=== PATIENT | male | born 1945 | race Caucasian/White ===

== ENCOUNTER 2018-04-15 00:06 | Inpatient (IN) | payer MEDICARE ==
[2018-04-15 00:51] LABS: #Eosinphils 0.4 thou/uL (0.0-0.7); #Lymphocytes 1.5 thou/uL (1.20-3.40); #Monocytes 0.7 thou/uL (0.11-0.59); #Neutrophils 6.8 thou/uL (1.40-6.50); %Basophils 0.3 % (0.0-1.0); %Eosinophils 3.8 % (0.0-10.0); %Monocytes 7.7 % (0.0-10.0); %Neutrophils 72.2 % (42.0-75.0); Hemoglobin 9.1 g/dL (14.0-18.0); Mean Corpuscular HGB CONC 32.2 g/dL (32.0-36.0); Mean Platelet Volume 7.8 fL (7.4-10.4); Platelet Count 314 thou/uL (130-400); RBC Distribution Width 12.3 % (11.5-14.5); Red Blood Cell (RBC) Count 3.04 mill/uL (4.70-6.10); White Blood Cell (WBC) Count 9.4 thou/uL (4.8-10.8)
[2018-04-15 01:12] LABS: ALT (SGPT) 10 U/L (8-55); AST (SGOT) 9 U/L (5-34); Albumin 3.9 g/dL (3.4-4.8); Alkaline Phosphatase 90 U/L (40-150); Anion Gap 15 mmol/L (10-20); BUN (Urea Nitrogen) 40 mg/dL (8.4-25.7); Bilirubin, Total 0.3 mg/dL (0.2-1.2); Calc. Creatinine Clearance 0 mL/min (70-130); Calcium 9.9 mg/dL (7.8-10.44); Carbon Dioxide 25 mmol/L (23-31); Chloride 102 mmol/L (98-107); Estimated GFR-MDRD 39; Globulin 3.4 g/dL (2.4-3.5); Glucose 103 mg/dL (83-110); Lipase 23 U/L (8-78); Potassium 4.3 mmol/L (3.5-5.1); Protein, Total 7.3 g/dL (5.8-8.1); Sodium 138 mmol/L (136-145)
[2018-04-15 01:25] LABS: Bilirubin Negative (Negative); Blood, Urine Small (Negative); Clarity TURBID (Clear); Glucose, Urine (Dipstick) Negative (Negative); Leukocyte Large (Negative); Nitrite Positive (Negative); Protein, Urine (Dipstick) 30 mg/dL (Neg-Trace); Specific Gravity, Urine 1.013 (1.002-1.036); Urobilinogen 0.2 mg/dL (0.2-1.0); pH, Urine 8.5 (5.0-9.0)
[2018-04-15 01:27] LABS: Bacteria/HPF 4+ HPF (None Seen); Pathc Cast-AUWi Flag 2.31 (0-2.49); Squamous Epithelial 0-3 HPF (0-3)
[2018-04-15 01:31] LABS: Hyaline Casts/LPF 7-10 HYALINE CAST LPF (0-3 Hyaline)
[2018-04-15 01:32] LABS: Crystals/HPF 2+ TRIPLE PHOS HPF (Negative); Renal Epithelial None Seen HPF (0-3); Transitional Epithelial NONE SEEN HPF (0-3)
[2018-04-15] MEDS ORDERED: Acetaminophen 325 MG TAB PO PRN (06:14)
[2018-04-15] MEDS ORDERED: Ondansetron PF 4 MG/2 ML Vial IVP PRN ×2 (06:14→11:57)
[2018-04-15] MEDS ORDERED: Ondansetron ODT 4 MG TAB SL PRN (06:14)
[2018-04-15] MEDS: Sodium Chloride 0.9% 1,000 ML IV SCH ×3 (07:10→17:02)
[2018-04-15 07:32] VITALS: BMI 20.5
[2018-04-15] MEDS ORDERED: Senokot S 8.6-50 MG TAB PO PRN (09:32)
[2018-04-15] MEDS: cefTRIAXone\\ROCEPHIN 1 GM in Sodium Chloride 0.9% 100 ML IVPB SCH (11:21)
[2018-04-15] MEDS ORDERED: Dextrose 5% in Water 1,000 ML IV PRN (11:54)
[2018-04-15] MEDS ORDERED: Dextrose 50% Abboject 50 ML SYRINGE SLOW IVP PRN (11:54)
[2018-04-15 12:43] LABS: Anion Gap 14 mmol/L (10-20); BUN (Urea Nitrogen) 34 mg/dL (8.4-25.7); Calc. Creatinine Clearance 51 mL/min (70-130); Calcium 8.6 mg/dL (7.8-10.44); Carbon Dioxide 23 mmol/L (23-31); Chloride 107 mmol/L (98-107); Estimated GFR-MDRD 55; Glucose 73 mg/dL (83-110); Potassium 3.5 mmol/L (3.5-5.1); Sodium 140 mmol/L (136-145)
--- NOTE | 2018-04-15 14:26 | RAD ---
PORTABLE CHEST: History: Fever. Comparison: 10-03-17 FINDINGS: Heart size appears slightly enlarged. There are post op sternotomy changes. The lungs are clear of an y infiltrates. IMPRESSION: Borderline to minimal cardiomegaly. No acute findings. POS: [facility]
--- NOTE | 2018-04-15 22:02 | HP ---
DATE OF ADMISSION: 04/15/2018 CHIEF COMPLAINT: Nausea, vomiting, and diarrhea. HOSPITAL COURSE: The patient is a very pleasant 73-year-old male with a history of coronary artery d isease, status post bypass; diabetes; hypertension; hyperlipidemia; recent bacteremia; and also endoc arditis who presented to the hospital with 1 day's worth of nausea, vomiting, and diarrhea. The valentine ent really cannot provide a great history. Most of the history is gotten from the charts; however, i t seems that the patient has had nausea, vomiting, and diarrhea for about a day and therefore was adm itted to the hospital for further evaluation. PAST MEDICAL HISTORY: He has coronary artery disease, diabetes, hypertension, hyperlipidemia, bacter emia, endocarditis. PAST SURGICAL HISTORY: Bypass in 2011 in [place], history of bilateral cataract surgery. SOCIAL HISTORY: The patient lives in a fpc in [facility]. He is a nonsmoker, quit in 1989; and also history of alcohol and drug use. FAMILY HISTORY: Father of diabetes and heart disease at the age of 70. Sister of lung can cer. REVIEW OF SYSTEMS: Unable to obtain. The patient is oriented only x2. ALLERGIES: He has no known drug allergies. MEDICATIONS: Aspirin 81 mg daily, insulin 5 units before meals and at bedtime, 20 units Lantus at [facility], Coreg 12.5 b.i.d., fluoxetine 20 mg daily, lisinopril 40 mg at bedtime, simvastatin 1 p.o. daily , tamsulosin 0.4 daily, and ziprasidone 20 mg p.o. b.i.d. PHYSICAL EXAMINATION: VITAL SIGNS: Temperature of 99.4, heart rate of 106, respirations 18, pulse 91, blood pressure 170/7 1. GENERAL: He is awake, alert, oriented x3, does not appear in any distress. CARDIOVASCULAR: S1, S2 present. No rubs or gallops. He does have a systolic murmur that I have hea rd in his right sternal border and left sternal border. ABDOMEN: Soft, nontender. Bowel sounds are present x2. EXTREMITIES: No edema. Pedal pulses are present x2. NEUROLOGIC: No focal deficits noted. The patient does have a Drake catheter. HEENT: Normocephalic, atraumatic. LABORATORY DATA: WBC of 9.4, hemoglobin of 9.1, hematocrit of 28.2 with no bandemia. Chemistry: So dium of 138, potassium of 4.2, BUN of 40. Creatinine of 1.71 initially when he came in, repeat one w as 1.27. Glucose was low at 73. Lactic acid is 1.2. IMAGING: Chest x-ray that was ordered just showed borderline to minimal cardiomegaly, no acute findi ngs. ASSESSMENT AND PLAN: The patient is a very pleasant 73-year-old male who presents to the hospital wi th nausea, vomiting, diarrhea. 1. Possible sepsis. The patient had a fever of 101. He also is symptomatic. He does not have a si gnificant amount of white count, because he has been on antibiotics according to his medication that I have reviewed from [facility]pc. The patient was a little tachycardic when he came in. He also zamora d an elevated creatinine, possibly secondary to dehydration. He does not have any significant abdomi nal pain; however, his urine did indicate positive nitrites most likely UTI. Unknown when his cathet er was changed. We will start the patient on ceftriaxone for now. He does have a history of pyelone phritis in his last admission. Please note that the patient's account number at this time did not in dicate any past visits; however, I had to call Medical Records since he has multiple account numbers that are not merged of note. The patient on his prior admission, I believe in December, had pyelonephrit is. We will continue ceftriaxone for now. Also, I will look through and if possible may require a C T scan to further evaluate this. 2. Urinary tract infection, most likely secondary to his chronic Drake. I am not sure when the Fole y was changed. I will ask the nurse to see and if not, we will change the Drake catheter. 3. History of bacteremia and also endocarditis. He did have an echocardiogram, which did indicate t hat he did have a small vegetation and he also in July had Staphylococcus aureus bacteremia. I ma y just broaden the antibiotics. 4. Diabetes. We will continue his home insulin. 5. Systolic murmur. 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 6. Deep venous thrombosis prophylaxis. The patient is on Xarelto. We will continue his Xarelto.
[2018-04-15] MEDS: Ferrous Sulfate 325 MG TAB PO SCH (22:44)
[2018-04-15] MEDS: Saccharomyces boulardii 250 MG CAP PO SCH (22:44)
[2018-04-15] MEDS: Atorvastatin Calcium 10 MG TAB PO SCH (22:45)
[2018-04-16 06:25] LABS: #Eosinphils 0.2 thou/uL (0.0-0.7); #Lymphocytes 1.7 thou/uL (1.20-3.40); #Monocytes 0.6 thou/uL (0.11-0.59); #Neutrophils 9.2 thou/uL (1.40-6.50); %Basophils 0.1 % (0.0-1.0); %Eosinophils 2.1 % (0.0-10.0); %Lymphocytes 14.6 % (21.0-51.0); %Monocytes 4.7 % (0.0-10.0); %Neutrophils 78.5 % (42.0-75.0); Hemoglobin 8.3 g/dL (14.0-18.0); Mean Corpuscular HGB CONC 32.7 g/dL (32.0-36.0); Mean Corpuscular Hemoglobin 30.7 pg (27.0-31.0); Mean Corpuscular Volume 93.9 fL (78.0-98.0); Mean Platelet Volume 8.4 fL (7.4-10.4); Platelet Count 283 thou/uL (130-400); RBC Distribution Width 12.1 % (11.5-14.5); Red Blood Cell (RBC) Count 2.71 mill/uL (4.70-6.10); White Blood Cell (WBC) Count 11.7 thou/uL (4.8-10.8)
[2018-04-16] MEDS: HumaLOG 300 UNITS/3 ML VIAL SC PRN ×4 (06:34→21:37)
[2018-04-16] MEDS: Sodium Chloride 0.9% 1,000 ML IV SCH (06:37)
[2018-04-16 06:44] LABS: Anion Gap 12 mmol/L (10-20); BUN (Urea Nitrogen) 28 mg/dL (8.4-25.7); Calc. Creatinine Clearance 52 mL/min (70-130); Calcium 8.6 mg/dL (7.8-10.44); Carbon Dioxide 23 mmol/L (23-31); Chloride 106 mmol/L (98-107); Estimated GFR-MDRD 56; Glucose 274 mg/dL (83-110); Potassium 4.2 mmol/L (3.5-5.1); Sodium 137 mmol/L (136-145)
[2018-04-16] MEDS ORDERED: Non-Formulary Item 1 EACH (Carvedilol [Coreg] 12.5 MG) PO SCH (09:00)
[2018-04-16] MEDS: Carvedilol 6.25 MG TAB PO SCH ×2 (10:01→21:29)
[2018-04-16] MEDS: Ferrous Sulfate 325 MG TAB PO SCH ×2 (10:02→21:30)
[2018-04-16] MEDS: Saccharomyces boulardii 250 MG CAP PO SCH ×2 (10:03→21:30)
[2018-04-16] MEDS: Furosemide 40 MG TAB PO SCH (10:03)
[2018-04-16] MEDS: Multivitamin W/ Minerals 1 TAB PO SCH (10:03)
[2018-04-16] MEDS: FLUoxetine HCl 20 MG CAP PO SCH (10:04)
[2018-04-16] MEDS: Tamsulosin HCl 0.4 MG CAP PO SCH (10:04)
[2018-04-16] MEDS: cefTRIAXone\\ROCEPHIN 1 GM in Sodium Chloride 0.9% 100 ML IVPB SCH (10:04)
--- NOTE | 2018-04-16 15:52 | PDOC.PN ---
- Subjective Encounter Start Date: 04/16/18 Encounter Start Time: 12:00 Subjective: pt up in bed no complains - Objective Resuscitation Status: Resuscitation Status DNR:Do Not Resuscitate Vital Signs & Weight: Vital Signs (12 hours) Temp Pulse Resp BP BP Pulse Ox 04/16/18 15:50 99.2 F 71 16 136/65 92 L 04/16/18 12:00 98.9 F 79 20 102/56 L 95 04/16/18 10:01 119/59 L 04/16/18 07:45 98.1 F 73 18 119/59 L 95 04/16/18 04:46 99 F 85 16 147/66 H 91 L Weight Weight 156 lb I&O: 04/15/18 04/16/18 04/17/18 06:59 06:59 06:59 Intake Total 2306 Output Total 1025 Balance 1281 Result Diagrams: 04/16/18 05:35 04/16/18 05:35 Additional Labs: Accuchecks 04/16/18 04/15/18 05:23 20:01 POC Glucose 268 H 181 H Phys Exam - Physical Examination Neck: no nodes, no JVD, supple, full ROM Respiratory: no wheezing, no rales, no rhonchi, wheezing present, clear to auscultation bilateral Cardiovascular: RRR, no significant murmur, no rub, gallop, irregular Gastrointestinal: soft, non-tender, no distention, positive bowel sounds Musculoskeletal: no edema, pulses present, edema present Dx/Plan (1) Sepsis Code(s): A41.9 - SEPSIS, UNSPECIFIED ORGANISM Status: Acute (2) UTI (urinary tract infection) Status: Acute (3) Hx of bacteremia Code(s): Z87.898 - PERSONAL HISTORY OF OTHER SPECIFIED CONDITIONS Status: Acute (4) History of endocarditis Code(s): Z86.79 - PERSONAL HISTORY OF OTHER DISEASES OF THE CIRCULATORY SYSTEM Status: Acute (5) Dementia Code(s): F03.90 - UNSPECIFIED DEMENTIA WITHOUT BEHAVIORAL DISTURBANCE Status: Acute - Plan pt's diarrhea has resolved -: will continue current abx -: leal changed. stool only indicates leukocytosis, cdiff negative -: blood cx done yest after abx * . Review of Systems - Review of Systems Respiratory: negative: Cough, Dry, Shortness of Breath, Hemoptysis, SOB with Excertion, Pleuritic Pain, Sputum, Wheezing Cardiovascular: negative: chest pain, palpitations, orthopnea, paroxysmal nocturnal dyspnea, edema, light headedness, other Gastrointestinal: negative: Nausea, Vomiting, Abdominal Pain, Diarrhea, Constipation, Melena, Hematochezia, Other Genitourinary: negative: Dysuria, Frequency, Incontinence, Hematuria, Retention , Other - Medications/Allergies Allergies/Adverse Reactions: Allergies Allergy/AdvReac Type Severity Reaction Status Date / Time No Known Drug Allergies Allergy Verified 04/15/18 06:12 Medications: Current Medications Aspirin (Aspirin Chewable) 81 mg PO DAILY [facility] Last Admin: 04/16/18 10:00 Dose: 81 mg Atorvastatin Calcium (Lipitor) 10 mg PO HS [facility] Last Admin: 04/15/18 22:45 Dose: 10 mg Carvedilol (Coreg) 12.5 mg PO BID [facility] Last Admin: 04/16/18 10:01 Dose: 12.5 mg Dextrose/Water (Dextrose 50%) 25 gm SLOW IVP PRN PRN PRN Reason: Hypoglycemia Ferrous Sulfate (Feosol) 325 mg PO BID [facility] Last Admin: 04/16/18 10:02 Dose: 325 mg Fluoxetine HCl (Prozac) 20 mg PO DAILY [facility] Last Admin: 04/16/18 10:04 Dose: 20 mg Furosemide (Lasix) 40 mg PO DAILY [facility] Last Admin: 04/16/18 10:03 Dose: 40 mg Glucagon (Glucagon) 1 mg IM PRN PRN PRN Reason: Hypoglycemia Ceftriaxone Sodium 1 gm/ (Sodium Chloride) 100 mls @ 200 mls/hr IVPB 1000 [facility] Last Admin: 04/16/18 10:04 Dose: 100 mls Dextrose/Water (D5w) 1,000 mls @ 0 mls/hr IV .Q0M PRN PRN Reason: Hypoglycemia Insulin Human Lispro (Humalog) 0 units SC .MILD SLIDING SCALE PRN PRN Reason: Mild Correctional Scale Last Admin: 04/16/18 11:45 Dose: 6 unit Iron/Minerals/Multivitamins (Theragran M) 1 tab PO DAILY [facility] Last Admin: 04/16/18 10:03 Dose: 1 tab Ondansetron HCl (Zofran) 4 mg IVP Q6H PRN PRN Reason: Nausea/Vomiting Rivaroxaban (Xarelto) 20 mg PO 1700 [facility] Saccharomyces Boulardii (Florastor) 250 mg PO BID [facility] Last Admin: 04/16/18 10:03 Dose: 250 mg Senna/Docusate Sodium (Senokot S) 2 tab PO BID PRN PRN Reason: Constipation Sodium Chloride (Flush - Normal Saline) 10 ml IVF Q12HR [facility] Last Admin: 04/16/18 10:05 Dose: 10 ml Sodium Chloride (Flush - Normal Saline) 10 ml IVF PRN PRN PRN Reason: Saline Flush Tamsulosin HCl (Flomax) 0.4 mg PO DAILY [facility] Last Admin: 04/16/18 10:04 Dose: 0.4 mg
[2018-04-16] MEDS ORDERED: Non-Formulary Item 1 EACH (Rivaroxaban [Xarelto] 20 MG) PO SCH (17:00)
[2018-04-16] MEDS: Rivaroxaban 10 MG TAB PO SCH (17:54)
[2018-04-16] MEDS: Atorvastatin Calcium 10 MG TAB PO SCH (21:29)
[2018-04-17] MEDS: HumaLOG 300 UNITS/3 ML VIAL SC PRN ×4 (06:19→21:45)
[2018-04-17] MEDS: Furosemide 40 MG TAB PO SCH (08:32)
[2018-04-17] MEDS: Multivitamin W/ Minerals 1 TAB PO SCH (08:32)
[2018-04-17] MEDS: Saccharomyces boulardii 250 MG CAP PO SCH ×2 (08:32→20:24)
[2018-04-17] MEDS: Tamsulosin HCl 0.4 MG CAP PO SCH (08:33)
[2018-04-17] MEDS: Carvedilol 6.25 MG TAB PO SCH ×2 (08:33→21:46)
[2018-04-17] MEDS: Ferrous Sulfate 325 MG TAB PO SCH ×2 (08:34→20:24)
[2018-04-17] MEDS: FLUoxetine HCl 20 MG CAP PO SCH (08:34)
[2018-04-17] MEDS: cefTRIAXone\\ROCEPHIN 1 GM in Sodium Chloride 0.9% 100 ML IVPB SCH (10:55)
--- NOTE | 2018-04-17 11:32 | PDOC.PN ---
- Subjective Encounter Start Date: 04/17/18 Encounter Start Time: 11:00 Subjective: pt up in bed no complains - Objective Resuscitation Status: Resuscitation Status DNR:Do Not Resuscitate Vital Signs & Weight: Vital Signs (12 hours) Temp Pulse Resp BP BP Pulse Ox 04/17/18 08:33 147/68 H 04/17/18 08:00 98.3 F 69 16 147/65 H 93 L 04/17/18 00:00 98.2 F 70 16 126/61 94 L Weight Weight 156 lb I&O: 04/16/18 04/17/18 04/18/18 06:59 06:59 06:59 Intake Total 2306 1740 Output Total 1025 2300 Balance 1281 -560 Result Diagrams: 04/16/18 05:35 04/16/18 05:35 Additional Labs: Accuchecks 04/17/18 04/16/18 04/16/18 11:09 20:57 15:12 POC Glucose 458 H 351 H 386 H 04/16/18 10:21 POC Glucose 359 H Phys Exam - Physical Examination Neck: no nodes, no JVD, supple, full ROM Respiratory: no wheezing, no rales, no rhonchi, wheezing present, clear to auscultation bilateral Cardiovascular: RRR, no significant murmur, no rub, gallop, irregular Gastrointestinal: soft, non-tender, no distention, positive bowel sounds Musculoskeletal: no edema, pulses present, edema present Dx/Plan (1) Sepsis Code(s): A41.9 - SEPSIS, UNSPECIFIED ORGANISM Status: Acute (2) UTI (urinary tract infection) Status: Acute (3) Hx of bacteremia Code(s): Z87.898 - PERSONAL HISTORY OF OTHER SPECIFIED CONDITIONS Status: Acute (4) History of endocarditis Code(s): Z86.79 - PERSONAL HISTORY OF OTHER DISEASES OF THE CIRCULATORY SYSTEM Status: Acute (5) Dementia Code(s): F03.90 - UNSPECIFIED DEMENTIA WITHOUT BEHAVIORAL DISTURBANCE Status: Acute - Plan pt up in bed no complains -: cx indicated proteus sensetive to rocephin -: leal changed. -: pt has no more diarrhea/n/v -: blood sugars are high will titrate insulin * . Review of Systems - Review of Systems Respiratory: negative: Cough, Dry, Shortness of Breath, Hemoptysis, SOB with Excertion, Pleuritic Pain, Sputum, Wheezing Cardiovascular: negative: chest pain, palpitations, orthopnea, paroxysmal nocturnal dyspnea, edema, light headedness, other Gastrointestinal: negative: Nausea, Vomiting, Abdominal Pain, Diarrhea, Constipation, Melena, Hematochezia, Other Genitourinary: negative: Dysuria, Frequency, Incontinence, Hematuria, Retention , Other - Medications/Allergies Allergies/Adverse Reactions: Allergies Allergy/AdvReac Type Severity Reaction Status Date / Time No Known Drug Allergies Allergy Verified 04/15/18 06:12 Medications: Current Medications Aspirin (Aspirin Chewable) 81 mg PO DAILY [facility] Last Admin: 04/17/18 08:33 Dose: 81 mg Atorvastatin Calcium (Lipitor) 10 mg PO [facility] Last Admin: 04/16/18 21:29 Dose: 10 mg Carvedilol (Coreg) 12.5 mg PO BID [facility] Last Admin: 04/17/18 08:33 Dose: 12.5 mg Dextrose/Water (Dextrose 50%) 25 gm SLOW IVP PRN PRN PRN Reason: Hypoglycemia Ferrous Sulfate (Feosol) 325 mg PO BID [facility] Last Admin: 04/17/18 08:34 Dose: 325 mg Fluoxetine HCl (Prozac) 20 mg PO DAILY [facility] Last Admin: 04/17/18 08:34 Dose: 20 mg Furosemide (Lasix) 40 mg PO DAILY [facility] Last Admin: 04/17/18 08:32 Dose: 40 mg Glucagon (Glucagon) 1 mg IM PRN PRN PRN Reason: Hypoglycemia Ceftriaxone Sodium 1 gm/ (Sodium Chloride) 100 mls @ 200 mls/hr IVPB 1000 [facility] Last Admin: 04/17/18 10:55 Dose: 100 mls Dextrose/Water (D5w) 1,000 mls @ 0 mls/hr IV .Q0M PRN PRN Reason: Hypoglycemia Insulin Glargine 6 units/ (Miscellaneous Medication) 0.06 mls @ 0 mls/hr SC HS [facility] Insulin Glargine 6 units/ (Miscellaneous Medication) 0.06 mls @ 0 mls/hr SC QAM [facility] Insulin Human Lispro (Humalog) 0 units SC .MODERATE SLIDING SC PRN PRN Reason: Moderate Correctional Scale Iron/Minerals/Multivitamins (Theragran M) 1 tab PO DAILY [facility] Last Admin: 04/17/18 08:32 Dose: 1 tab Ondansetron HCl (Zofran) 4 mg IVP Q6H PRN PRN Reason: Nausea/Vomiting Rivaroxaban (Xarelto) 20 mg PO 1700 [facility] Last Admin: 04/16/18 17:54 Dose: 20 mg Saccharomyces Boulardii (Florastor) 250 mg PO BID [facility] Last Admin: 04/17/18 08:32 Dose: 250 mg Senna/Docusate Sodium (Senokot S) 2 tab PO BID PRN PRN Reason: Constipation Sodium Chloride (Flush - Normal Saline) 10 ml IVF Q12HR [facility] Last Admin: 04/17/18 08:34 Dose: 10 ml Sodium Chloride (Flush - Normal Saline) 10 ml IVF PRN PRN PRN Reason: Saline Flush Tamsulosin HCl (Flomax) 0.4 mg PO DAILY [facility] Last Admin: 04/17/18 08:33 Dose: 0.4 mg
[2018-04-17] MEDS ORDERED: Insulin Glargine 6 UNITS in Pre-Filled Syringe 1 EACH SC SCH (11:45)
[2018-04-17] MEDS: Rivaroxaban 10 MG TAB PO SCH (17:04)
[2018-04-17] MEDS: Atorvastatin Calcium 10 MG TAB PO SCH (20:19)
[2018-04-17] MEDS: Insulin Glargine 6 UNITS in Pre-Filled Syringe 1 EACH SC SCH (21:44)
[2018-04-18] MEDS: HumaLOG 300 UNITS/3 ML VIAL SC PRN ×4 (06:17→21:24)
[2018-04-18] MEDS: Furosemide 40 MG TAB PO SCH (10:39)
[2018-04-18] MEDS: Ferrous Sulfate 325 MG TAB PO SCH ×2 (10:39→21:24)
[2018-04-18] MEDS: Tamsulosin HCl 0.4 MG CAP PO SCH (10:39)
[2018-04-18] MEDS: FLUoxetine HCl 20 MG CAP PO SCH (10:39)
[2018-04-18] MEDS: Saccharomyces boulardii 250 MG CAP PO SCH ×2 (10:39→21:23)
[2018-04-18] MEDS: Multivitamin W/ Minerals 1 TAB PO SCH (10:39)
[2018-04-18] MEDS: Carvedilol 6.25 MG TAB PO SCH ×2 (10:39→21:37)
[2018-04-18] MEDS: Insulin Glargine 6 UNITS in Pre-Filled Syringe 1 EACH SC SCH ×2 (10:45→21:24)
[2018-04-18] MEDS: cefTRIAXone\\ROCEPHIN 1 GM in Sodium Chloride 0.9% 100 ML IVPB SCH (12:10)
--- NOTE | 2018-04-18 14:54 | PDOC.PN ---
- Subjective Encounter Start Date: 04/18/18 Encounter Start Time: 10:30 -: old records requested/rev Pt seen and examined, chart reviewed in its entirety, this is my first visit with this patient Follow up for UTI, sepsis, nausea and vomiting No F/C, no N/V/D/C, no CP or SOB, no cough or sputum production All systems reviewed and neg except as stated above - Objective Resuscitation Status: Resuscitation Status DNR:Do Not Resuscitate MAR Reviewed: Yes Vital Signs & Weight: Vital Signs (12 hours) Temp Pulse Resp BP BP Pulse Ox 04/18/18 11:05 98.9 F 62 16 136/65 95 04/18/18 10:39 113/64 04/18/18 08:00 95 04/18/18 07:46 98.5 F 58 L 18 103/62 95 04/18/18 03:50 98.6 F 58 L 16 118/69 93 L Weight Weight 156 lb I&O: 04/17/18 04/18/18 04/19/18 06:59 06:59 06:59 Intake Total 1740 Output Total 2300 Balance -560 Result Diagrams: 04/19/18 04:20 04/19/18 04:20 Additional Labs: Accuchecks 04/18/18 04/18/18 04/17/18 11:06 05:24 21:09 POC Glucose 401 H 368 H 363 H 04/17/18 16:20 POC Glucose 416 H Radiology Reviewed by me: Yes EKG Reviewed by me: Yes Phys Exam - Physical Examination Constitutional: NAD HEENT: PERRLA, moist MMs, sclera anicteric, oral pharynx no lesions Neck: no nodes, no JVD, supple, full ROM Respiratory: no wheezing, no rales, no rhonchi, clear to auscultation bilateral Cardiovascular: RRR, no significant murmur Gastrointestinal: soft, non-tender, no distention, positive bowel sounds Musculoskeletal: edema present Neurological: non-focal, normal sensation, moves all 4 limbs globally weak Lymphatic: no nodes Psychiatric: normal affect, A&O x 3 Skin: no rash, normal turgor, cap refill <2 seconds Dx/Plan (1) Indwelling catheter present on admission Code(s): Z96.0 - PRESENCE OF UROGENITAL IMPLANTS Status: Chronic Comment: changed after admit (2) Dementia Code(s): F03.90 - UNSPECIFIED DEMENTIA WITHOUT BEHAVIORAL DISTURBANCE Status: Chronic Qualifiers: Dementia type: unspecified type Dementia behavioral disturbance: without behavioral disturbance Qualified Code(s): F03.90 - Unspecified dementia without behavioral disturbance (3) History of endocarditis Code(s): Z86.79 - PERSONAL HISTORY OF OTHER DISEASES OF THE CIRCULATORY SYSTEM Status: Chronic (4) Sepsis Code(s): A41.9 - SEPSIS, UNSPECIFIED ORGANISM Status: Acute Qualifiers: Sepsis type: sepsis due to unspecified organism Qualified Code(s): A41.9 - Sepsis, unspecified organism (5) UTI (urinary tract infection) Status: Acute Qualifiers: Urinary tract infection type: catheter-associated UTI Indwelling urinary catheter type: indwelling urethral catheter Encounter type: initial encounter Qualified Code(s): T83.511A - Infection and inflammatory reaction due to indwelling urethral catheter, initial encounter; N39.0 - Urinary tract infection , site not specified Comment: present on admit. Proteus on culture, catheter changed. to po on discharge, anticipate D/C tomorrow - Plan cont current plan of care, continue antibiotics, PT/OT, manager social responsibility, out of bed/ambulate * .
--- NOTE | 2018-04-18 14:55 | PDOC.PN ---
- Subjective Encounter Start Date: 04/18/18 Encounter Start Time: 14:15 -: old records requested/rev Pt seen and examined, chart reviewed in its entirety, this is my first visit with this patient Follow up for cellulitis RLE, ESRD on HD No F/C, no N/V/D/C, no CP or SOB, no cough or sputum production All systems reviewed and neg except as stated above - Objective Resuscitation Status: Resuscitation Status DNR:Do Not Resuscitate MAR Reviewed: Yes Vital Signs & Weight: Vital Signs (12 hours) Temp Pulse Resp BP BP Pulse Ox 04/18/18 11:05 98.9 F 62 16 136/65 95 04/18/18 10:39 113/64 04/18/18 08:00 95 04/18/18 07:46 98.5 F 58 L 18 103/62 95 04/18/18 03:50 98.6 F 58 L 16 118/69 93 L Weight Weight 156 lb I&O: 04/17/18 04/18/18 04/19/18 06:59 06:59 06:59 Intake Total 1740 Output Total 2300 Balance -560 Result Diagrams: 04/16/18 05:35 04/16/18 05:35 Additional Labs: Accuchecks 04/18/18 04/18/18 04/17/18 11:06 05:24 21:09 POC Glucose 401 H 368 H 363 H 04/17/18 16:20 POC Glucose 416 H Radiology Reviewed by me: Yes EKG Reviewed by me: Yes Dx/Plan (1) Indwelling catheter present on admission Code(s): Z96.0 - PRESENCE OF UROGENITAL IMPLANTS Status: Acute (2) Dementia Code(s): F03.90 - UNSPECIFIED DEMENTIA WITHOUT BEHAVIORAL DISTURBANCE Status: Acute (3) History of endocarditis Code(s): Z86.79 - PERSONAL HISTORY OF OTHER DISEASES OF THE CIRCULATORY SYSTEM Status: Acute (4) Sepsis Code(s): A41.9 - SEPSIS, UNSPECIFIED ORGANISM Status: Acute (5) UTI (urinary tract infection) Status: Acute - Plan * .
[2018-04-18] MEDS: Rivaroxaban 10 MG TAB PO SCH (18:29)
[2018-04-18] MEDS: Atorvastatin Calcium 10 MG TAB PO SCH (21:23)
[2018-04-19 05:23] LABS: Hemoglobin 8.4 g/dL (14.0-18.0); Platelet Count 303 thou/uL (130-400)
[2018-04-19] MEDS: HumaLOG 300 UNITS/3 ML VIAL SC PRN ×2 (06:47→17:29)
[2018-04-19] MEDS: Tamsulosin HCl 0.4 MG CAP PO SCH (08:02)
[2018-04-19] MEDS: Multivitamin W/ Minerals 1 TAB PO SCH (08:02)
[2018-04-19] MEDS: Furosemide 40 MG TAB PO SCH (08:02)
[2018-04-19] MEDS: FLUoxetine HCl 20 MG CAP PO SCH (08:02)
[2018-04-19] MEDS: Ferrous Sulfate 325 MG TAB PO SCH ×2 (08:02→20:25)
[2018-04-19] MEDS: Saccharomyces boulardii 250 MG CAP PO SCH ×2 (08:03→20:26)
[2018-04-19] MEDS: Carvedilol 6.25 MG TAB PO SCH ×2 (08:03→20:25)
[2018-04-19] MEDS: Insulin Glargine 6 UNITS in Pre-Filled Syringe 1 EACH SC SCH ×2 (09:12→20:26)
[2018-04-19] MEDS: cefTRIAXone\\ROCEPHIN 1 GM in Sodium Chloride 0.9% 100 ML IVPB SCH (10:25)
[2018-04-19] MEDS: Rivaroxaban 10 MG TAB PO SCH (16:40)
[2018-04-19] MEDS: Atorvastatin Calcium 10 MG TAB PO SCH (20:25)
[2018-04-20] MEDS: HumaLOG 300 UNITS/3 ML VIAL SC PRN ×4 (05:51→21:50)
[2018-04-20] MEDS: Insulin Glargine 6 UNITS in Pre-Filled Syringe 1 EACH SC SCH ×2 (09:14→21:50)
[2018-04-20] MEDS: cefTRIAXone\\ROCEPHIN 1 GM in Sodium Chloride 0.9% 100 ML IVPB SCH (09:15)
[2018-04-20] MEDS: Saccharomyces boulardii 250 MG CAP PO SCH ×2 (09:17→21:30)
[2018-04-20] MEDS: Furosemide 40 MG TAB PO SCH (09:18)
[2018-04-20] MEDS: Carvedilol 6.25 MG TAB PO SCH ×2 (09:18→21:31)
[2018-04-20] MEDS: FLUoxetine HCl 20 MG CAP PO SCH (09:18)
[2018-04-20] MEDS: Tamsulosin HCl 0.4 MG CAP PO SCH (09:18)
[2018-04-20] MEDS: Multivitamin W/ Minerals 1 TAB PO SCH (09:18)
[2018-04-20] MEDS: Ferrous Sulfate 325 MG TAB PO SCH ×2 (09:18→21:31)
--- NOTE | 2018-04-20 12:00 | PDOC.PN ---
- Subjective Encounter Start Date: 04/19/18 Encounter Start Time: 11:30 looked better, up with PT, but on sitting in chair, got causeated adn vomited. NO f/C, no D/c, no other vomiting all systems reviewed and neg x as above - Objective Resuscitation Status: Resuscitation Status DNR:Do Not Resuscitate MAR Reviewed: Yes Vital Signs & Weight: Vital Signs (12 hours) Temp Pulse Resp BP BP Pulse Ox 04/20/18 09:18 123/62 04/20/18 09:17 98.4 F 68 18 123/62 96 04/20/18 03:58 98.5 F 67 16 94/56 L 92 L 04/20/18 00:06 99.4 F 66 20 90/51 L 92 L Weight Weight 156 lb I&O: 04/19/18 04/20/18 04/21/18 06:59 06:59 06:59 Intake Total 240 1490 Output Total 625 1200 Balance -385 290 Result Diagrams: 04/19/18 04:20 04/19/18 04:20 Additional Labs: Accuchecks 04/20/18 04/19/18 04/19/18 05:47 20:25 16:06 POC Glucose 246 H 146 H 211 H 04/19/18 05:41 POC Glucose 252 H Phys Exam - Physical Examination Constitutional: NAD HEENT: PERRLA, moist MMs, sclera anicteric, oral pharynx no lesions Neck: no nodes, no JVD, supple, full ROM Respiratory: no wheezing, no rales, clear to auscultation bilateral Cardiovascular: RRR Gastrointestinal: soft, non-tender, no distention, positive bowel sounds Musculoskeletal: edema present Neurological: non-focal, moves all 4 limbs Lymphatic: no nodes Psychiatric: normal affect Skin: no rash, normal turgor, cap refill <2 seconds Dx/Plan (1) Indwelling catheter present on admission Code(s): Z96.0 - PRESENCE OF UROGENITAL IMPLANTS Status: Chronic Comment: changed after admit (2) Dementia Code(s): F03.90 - UNSPECIFIED DEMENTIA WITHOUT BEHAVIORAL DISTURBANCE Status: Chronic Qualifiers: Dementia type: unspecified type Dementia behavioral disturbance: without behavioral disturbance Qualified Code(s): F03.90 - Unspecified dementia without behavioral disturbance (3) History of endocarditis Code(s): Z86.79 - PERSONAL HISTORY OF OTHER DISEASES OF THE CIRCULATORY SYSTEM Status: Chronic (4) Sepsis Code(s): A41.9 - SEPSIS, UNSPECIFIED ORGANISM Status: Acute Qualifiers: Sepsis type: sepsis due to unspecified organism Qualified Code(s): A41.9 - Sepsis, unspecified organism (5) UTI (urinary tract infection) Status: Acute Qualifiers: Urinary tract infection type: catheter-associated UTI Indwelling urinary catheter type: indwelling urethral catheter Encounter type: initial encounter Qualified Code(s): T83.511A - Infection and inflammatory reaction due to indwelling urethral catheter, initial encounter; N39.0 - Urinary tract infection , site not specified Comment: present on admit. Proteus on culture, catheter changed. to po on discharge, anticipate D/C tomorrow (6) Nausea & vomiting Code(s): R11.2 - NAUSEA WITH VOMITING, UNSPECIFIED Status: Acute Qualifiers: Vomiting type: unspecified Vomiting Intractability: non-intractable Qualified Code(s): R11.2 - Nausea with vomiting, unspecified Comment: was better for a couple of days. Hold D/c, zofran, watch. - Plan * .
--- NOTE | 2018-04-20 12:16 | EKG ---
Test Reason : Blood Pressure : / mmHG Vent. Rate : 062 BPM Atrial Rate : 062 BPM P-R Int : 192 ms QRS Dur : 086 ms QT Int : 470 ms P-R-T Axes : 000 012 022 degrees QTc Int : 477 ms Normal sinus rhythm Possible Anterior infarct , age undetermined Abnormal ECG Confirmed by LANETTE BERNAL MD ([id number]), field map editor MANAN HORVATH ([id number]) on 04/20/2018 12:15:54 PM Referred By: Confirmed By:LANETTE BERNAL MD
[2018-04-20] MEDS: Rivaroxaban 10 MG TAB PO SCH (16:33)
[2018-04-20] MEDS: Atorvastatin Calcium 10 MG TAB PO SCH (21:30)
[2018-04-21] MEDS: Loperamide HCl 2 MG CAP PO PRN ×3 (03:39→21:30)
[2018-04-21 05:49] LABS: Platelet Count 302 thou/uL (130-400)
[2018-04-21] MEDS: HumaLOG 300 UNITS/3 ML VIAL SC PRN ×4 (06:43→21:26)
[2018-04-21] MEDS: Saccharomyces boulardii 250 MG CAP PO SCH ×2 (08:54→21:07)
[2018-04-21] MEDS: FLUoxetine HCl 20 MG CAP PO SCH (08:54)
[2018-04-21] MEDS: Multivitamin W/ Minerals 1 TAB PO SCH (08:54)
[2018-04-21] MEDS: Carvedilol 6.25 MG TAB PO SCH ×2 (08:55→21:07)
[2018-04-21] MEDS: Ferrous Sulfate 325 MG TAB PO SCH ×2 (08:55→21:07)
[2018-04-21] MEDS: Furosemide 40 MG TAB PO SCH (08:55)
[2018-04-21] MEDS: Tamsulosin HCl 0.4 MG CAP PO SCH (08:55)
[2018-04-21] MEDS: Insulin Glargine 6 UNITS in Pre-Filled Syringe 1 EACH SC SCH ×2 (08:56→21:27)
[2018-04-21] MEDS: cefTRIAXone\\ROCEPHIN 1 GM in Sodium Chloride 0.9% 100 ML IVPB SCH (09:55)
--- NOTE | 2018-04-21 14:11 | PDOC.PN ---
- Subjective Encounter Start Date: 04/20/18 Encounter Start Time: 11:45 no acute events, no more N/v. slept well, bella po No f/c, no n/V/D/c All systems reviewed and neg ready to go back to NH with skilled PT/OT if facility ready - Objective Resuscitation Status: Resuscitation Status DNR:Do Not Resuscitate MAR Reviewed: Yes Vital Signs & Weight: Vital Signs (12 hours) Temp Pulse Resp BP BP Pulse Ox 04/21/18 11:40 98.3 F 59 L 15 109/53 L 94 L 04/21/18 08:55 113/64 04/21/18 08:01 96 04/21/18 07:01 98.5 F 67 20 113/64 96 04/21/18 05:12 98.1 F 68 19 110/58 L 93 L 04/21/18 02:10 108/51 L Weight Weight 156 lb I&O: 04/20/18 04/21/18 04/22/18 06:59 06:59 06:59 Intake Total 1490 1080 700 Output Total 1200 950 200 Balance 290 130 500 Result Diagrams: 04/21/18 05:31 04/21/18 05:31 Additional Labs: Accuchecks 04/21/18 04/21/18 04/20/18 11:40 05:59 21:28 POC Glucose 309 H 288 H 194 H 04/20/18 16:00 POC Glucose 200 H Phys Exam - Physical Examination Constitutional: NAD HEENT: PERRLA, moist MMs, sclera anicteric, oral pharynx no lesions Neck: no nodes, no JVD, supple, full ROM Respiratory: no wheezing, no rales, no rhonchi, clear to auscultation bilateral Cardiovascular: RRR, no rub Gastrointestinal: soft, non-tender, no distention, positive bowel sounds Musculoskeletal: no edema Neurological: non-focal, normal sensation, moves all 4 limbs Lymphatic: no nodes Psychiatric: normal affect Skin: no rash, normal turgor, cap refill <2 seconds Dx/Plan (1) Indwelling catheter present on admission Code(s): Z96.0 - PRESENCE OF UROGENITAL IMPLANTS Status: Chronic Comment: changed after admit (2) Dementia Code(s): F03.90 - UNSPECIFIED DEMENTIA WITHOUT BEHAVIORAL DISTURBANCE Status: Chronic Qualifiers: Dementia type: unspecified type Dementia behavioral disturbance: without behavioral disturbance Qualified Code(s): F03.90 - Unspecified dementia without behavioral disturbance (3) History of endocarditis Code(s): Z86.79 - PERSONAL HISTORY OF OTHER DISEASES OF THE CIRCULATORY SYSTEM Status: Chronic (4) Sepsis Code(s): A41.9 - SEPSIS, UNSPECIFIED ORGANISM Status: Acute Qualifiers: Sepsis type: sepsis due to unspecified organism Qualified Code(s): A41.9 - Sepsis, unspecified organism (5) UTI (urinary tract infection) Status: Acute Qualifiers: Urinary tract infection type: catheter-associated UTI Indwelling urinary catheter type: indwelling urethral catheter Encounter type: initial encounter Qualified Code(s): T83.511A - Infection and inflammatory reaction due to indwelling urethral catheter, initial encounter; N39.0 - Urinary tract infection , site not specified Comment: present on admit. Proteus on culture, catheter changed. to po on discharge, anticipate D/C today or tomorrow when approved (6) Nausea & vomiting Code(s): R11.2 - NAUSEA WITH VOMITING, UNSPECIFIED Status: Resolved Qualifiers: Vomiting type: unspecified Vomiting Intractability: non-intractable Qualified Code(s): R11.2 - Nausea with vomiting, unspecified Comment: was better for a couple of days. Hold D/c, zofran, watch. - Plan cont current plan of care, continue antibiotics, PT/OT, director social, out of bed/ambulate * .
--- NOTE | 2018-04-21 14:13 | PDOC.PN ---
- Subjective Encounter Start Date: 04/21/18 Encounter Start Time: 11:35 no events, no new complaints, denies f/c, no N/V/d/C awaiting insurance approval for skilled stay. all systems reviewed and neg x as above - Objective Resuscitation Status: Resuscitation Status DNR:Do Not Resuscitate MAR Reviewed: Yes Vital Signs & Weight: Vital Signs (12 hours) Temp Pulse Resp BP BP Pulse Ox 04/21/18 11:40 98.3 F 59 L 15 109/53 L 94 L 04/21/18 08:55 113/64 04/21/18 08:01 96 04/21/18 07:01 98.5 F 67 20 113/64 96 04/21/18 05:12 98.1 F 68 19 110/58 L 93 L Weight Weight 156 lb I&O: 04/20/18 04/21/18 04/22/18 06:59 06:59 06:59 Intake Total 1490 1080 700 Output Total 1200 950 200 Balance 290 130 500 Result Diagrams: 04/21/18 05:31 04/21/18 05:31 Additional Labs: Accuchecks 04/21/18 04/21/18 04/20/18 11:40 05:59 21:28 POC Glucose 309 H 288 H 194 H 04/20/18 16:00 POC Glucose 200 H Phys Exam - Physical Examination Constitutional: NAD HEENT: PERRLA, moist MMs, sclera anicteric, oral pharynx no lesions Neck: no nodes, no JVD, supple, full ROM Respiratory: no wheezing, no rales, no rhonchi, clear to auscultation bilateral Cardiovascular: RRR, no significant murmur Gastrointestinal: soft, non-tender, no distention, positive bowel sounds Musculoskeletal: no edema Neurological: non-focal, normal sensation, moves all 4 limbs Lymphatic: no nodes Psychiatric: normal affect Skin: no rash, normal turgor, cap refill <2 seconds Dx/Plan (1) Indwelling catheter present on admission Code(s): Z96.0 - PRESENCE OF UROGENITAL IMPLANTS Status: Chronic Comment: changed after admit (2) Dementia Code(s): F03.90 - UNSPECIFIED DEMENTIA WITHOUT BEHAVIORAL DISTURBANCE Status: Chronic Qualifiers: Dementia type: unspecified type Dementia behavioral disturbance: without behavioral disturbance Qualified Code(s): F03.90 - Unspecified dementia without behavioral disturbance (3) History of endocarditis Code(s): Z86.79 - PERSONAL HISTORY OF OTHER DISEASES OF THE CIRCULATORY SYSTEM Status: Chronic (4) Sepsis Code(s): A41.9 - SEPSIS, UNSPECIFIED ORGANISM Status: Acute Qualifiers: Sepsis type: sepsis due to unspecified organism Qualified Code(s): A41.9 - Sepsis, unspecified organism (5) UTI (urinary tract infection) Status: Acute Qualifiers: Urinary tract infection type: catheter-associated UTI Indwelling urinary catheter type: indwelling urethral catheter Encounter type: initial encounter Qualified Code(s): T83.511A - Infection and inflammatory reaction due to indwelling urethral catheter, initial encounter; N39.0 - Urinary tract infection , site not specified Comment: present on admit. Proteus on culture, catheter changed. to po on discharge, anticipate D/C today or tomorrow when approved (6) Nausea & vomiting Code(s): R11.2 - NAUSEA WITH VOMITING, UNSPECIFIED Status: Resolved Qualifiers: Vomiting type: unspecified Vomiting Intractability: non-intractable Qualified Code(s): R11.2 - Nausea with vomiting, unspecified Comment: was better for a couple of days. Hold D/c, zofran, watch. - Plan * . D/C when approved.
[2018-04-21] MEDS: Rivaroxaban 10 MG TAB PO SCH (16:43)
[2018-04-21] MEDS: Atorvastatin Calcium 10 MG TAB PO SCH (21:07)
[2018-04-22] MEDS: HumaLOG 300 UNITS/3 ML VIAL SC PRN (07:27)
[2018-04-22] MEDS: Carvedilol 6.25 MG TAB PO SCH (08:15)
[2018-04-22] MEDS: FLUoxetine HCl 20 MG CAP PO SCH (08:16)
[2018-04-22] MEDS: Insulin Glargine 6 UNITS in Pre-Filled Syringe 1 EACH SC SCH (08:16)
[2018-04-22] MEDS: Ferrous Sulfate 325 MG TAB PO SCH (08:16)
[2018-04-22] MEDS: Furosemide 40 MG TAB PO SCH (08:16)
[2018-04-22] MEDS: Multivitamin W/ Minerals 1 TAB PO SCH (08:16)
[2018-04-22] MEDS: Saccharomyces boulardii 250 MG CAP PO SCH (08:16)
[2018-04-22] MEDS: cefTRIAXone\\ROCEPHIN 1 GM in Sodium Chloride 0.9% 100 ML IVPB SCH (08:17)
[2018-04-22] MEDS: Tamsulosin HCl 0.4 MG CAP PO SCH (08:17)
[2018-04-22 16:19] VITALS: BP 114/64; TEMP 98.7
--- NOTE | 2018-04-22 21:09 | DIS ---
DATE OF ADMISSION: 04/15/2018 DATE OF DISCHARGE: 04/22/2018 DISCHARGE DIAGNOSES: 1. Sepsis secondarily to urinary tract infection with Proteus species. 2. Chronic indwelling Drake catheter with complicated urinary tract infection with Proteus species. 3. Gastroenteritis, multifactorial, resolving. 4. Dementia, mild. 5. Deconditioning. 6. Diabetes mellitus type 2, labile. CONSULTATIONS: None. PERTINENT LABORATORY AND X-RAY FINDINGS: Lactic acid level 1.2. CBC showed a white blood cell count ranging between 9.4-11.7, hemoglobin ranged between 8.0-9.1. Urine culture dated 04/15/2018 showed greater than 100,000 colonies of Proteus mirabilis, pansensitive except for Macrobid. C. difficile a ntigen and toxin 04/15/2018 negative. Stool culture dated 04/15/2018 showed normal enteric elizabeth. E .coli 0157 culture dated 04/15/2018 negative. Blood cultures x2 dated 04/15/2018 showed no growth at 5 days. Portable chest x-ray dated 04/15/2018 showed no acute cardiopulmonary process. HOSPITAL COURSE: The patient was initially admitted after presenting with nausea, vomiting, and diar dwight. The patient was initially managed for possible sepsis in the context of chronic indwelling Fol ey catheter present at the time of admission. The patient urinalysis with urine culture showing grea ter than 100,000 colonies of Proteus mirabilis. Patient was treated with IV Rocephin and underwent e xchange of current Drake catheter with a new device. The patient was treated for complicated urinary tract infection and overall clinically stabilized with IV antibiotic therapy. Patient continued on IV Rocephin throughout his hospital course, tolerating without complication. Due to patient's overal l deconditioned status and comorbid conditions, patient was deemed an appropriate candidate for [facility] skilled care in addition to physical therapy. Patient was approved and will return to [facility] for ongoing physical and occupational therapy as well as medical supervision. I have examined the patient at the time of discharge and discussed followup instructions. Patient verbalized understanding and agreement, ready for discharge on 04/22/2018. DISCHARGE MEDICATIONS: 1. Aspirin 81 mg 1 tab p.o. daily. 2. Coreg 12.5 mg p.o. b.i.d. 3. Ferrous sulfate 325 mg p.o. b.i.d. 4. Prozac 20 mg p.o. daily. 5. Lasix 40 mg p.o. daily. 6. Zestril 40 mg p.o. daily. 7. Multivitamin 1 tab p.o. daily. 8. Zofran 4 mg p.o. q.8 hours p.r.n. nausea, vomiting. 9. MiraLax 17 grams p.o. daily. 10. Klor-Con 20 mEq p.o. daily. 11. Xarelto 20 mg p.o. daily. 12. Florastor 250 mg p.o. b.i.d. 13. Zocor 20 mg p.o. at bedtime. 14. Flomax 0.4 mg p.o. daily. 15. Amoxicillin 500 mg p.o. t.i.d. x10 days. FOLLOWUP: Patient will follow up with Dr. Aguilar at [facility]. CONDITION ON DISCHARGE: Fair. ACTIVITY: Ad hansel. Rolling walker for ambulation with assistance for transfers. DIET: ADA, mechanical soft. SPECIAL INSTRUCTIONS: Continue routine Drake catheter care. CODE STATUS: DO NOT RESUSCITATE. DISPOSITION: Discharge to [facility] on 04/22/2018. Total time preparing and coordinating discharge is 32 minutes.
== END 2018-04-22 16:11 | DRG 698 ==
LOC: ERS 00:06 → OBSVTOIN 02:08 → SURG B 02:08
PROVIDERS: ADMIT Hospitalist; ATTEND Hospitalist
DX: T83.511A Infection and inflammatory reaction due to indwelling urethral catheter, initial encounter (principal); A41.59 Other Gram-negative sepsis; F03.90 Unspecified dementia, unspecified severity, without behavioral disturbance, psychotic disturbance, mood disturbance, and anxiety; N39.0 Urinary tract infection, site not specified; Y84.6 Urinary catheterization as the cause of abnormal reaction of the patient, or of later complication, without mention of misadventure at the time of the procedure; I25.10 Atherosclerotic heart disease of native coronary artery without angina pectoris; Z95.1 Presence of aortocoronary bypass graft; E11.9 Type 2 diabetes mellitus without complications; I10 Essential (primary) hypertension; E78.5 Hyperlipidemia, unspecified; Z87.891 Personal history of nicotine dependence; Z79.899 Other long term (current) drug therapy; Z79.82 Long term (current) use of aspirin; Z79.4 Long term (current) use of insulin; R01.1 Cardiac murmur, unspecified; K52.9 Noninfective gastroenteritis and colitis, unspecified; R53.81 Other malaise
CPT/HCPCS: 36415; 36416; 71045; 80048; 80053; 81003; 81015; 82565; 83605; 83630; 83690; 85014; 85018; 85025; 85049; 87040; 87045; 87046; 87077; 87086; 87186; 87324; 87449; 87899; 93005; 96360; 96361; G8978-GP-CM; G8979-GP-CK; G8987-GO-CK; G8988-GO-CJ; J0696; J2405; J7050